=== PATIENT | male | born 2000 | race Caucasian/White ===

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

== ENCOUNTER 2021-02-15 18:44 | Emergency (ER) | payer SELFPAY ==
[~2021-02-15] VITALS: Ht 172.7 cm; Wt 72.2 kg
[2021-02-15 22:01] VITALS: BP 129/73
[2021-02-15] MEDS ORDERED: LIDOCAINE 1% Multi-Dose 20 ML VIAL. ONE (22:03)
--- NOTE | 2021-02-15 22:10 | PHYS DOC ---
Past History Past Medical History: No Pertinent History (ANTONELLA KOO APRN) Past Surgical History: No Surgical History (ANTONELLA KOO APRN) Smoking: Non-smoker Alcohol Use: None Drug Use: None (ANTONELLA KOO APRN) General Adult EDM: Chief Complaint: LACERATION/AVULSION HPI: HPI: Patient is a 21-year-old male who presents to the emergency department for a laceration to his left hand. Patient reports that around 1800 he was fixing his car window when the window fell on his hand and was stopped and he had to pull his hand out causing a laceration. Patient is denying any current pain. He is reporting decreased flexion of his index finger due to swelling but denies any decreased sensation to his extremity. He reports tetanus is up-to-date. (ANTONELLA KOO APRN) Review of Systems: Review of Systems: Constitutional: negative unless reported in HPI Eyes: negative unless reported in HPI HENT: negative unless reported in HPI Respiratory: negative unless reported in HPI Cardiovascular: negative unless reported in HPI GI: negative unless reported in HPI : negative unless reported in HPI Musculoskeletal: negative unless reported in HPI Integument: negative unless reported in HPI Neurologic: negative unless reported in HPI Endocrine: negative unless reported in HPI Lymphatic: negative unless reported in HPI Psychiatric: negative unless reported in HPI (ANTONELLA KOO APRN) Current Medications: Current Meds: Current Medications Medications (Trade) Dose Ordered Sig/Candice Start Time Stop Time Status Last Admin Dose Admin Lidocaine HCl 20 ml STK-MED ONCE 02/15/21 22:03 02/15/21 22:04 DC (ANTONELLA KOO APRN) Allergies: Allergies: Allergies Coded Allergies Type Severity Reaction Last Updated Verified No Known Drug Allergies 11/16/15 No (ANTONELLA KOO APRN) Physical Exam: PE: Constitutional: Well developed, well nourished, no acute distress, non-toxic appearance. [] HENT: Normocephalic, atraumatic, bilateral external ears normal, oropharynx moist, no oral exudates, nose normal. [] Eyes: PERRL, EOMI, conjunctiva normal, no discharge. [] Neck: Normal range of motion, no stridor Cardiovascular: Normal peripheral perfusion Lungs & Thorax: Normal work of breathing, no tachypnea Abdomen: Soft and flat Skin: Warm, dry, no erythema, no rash. [] Back: Normal range of motion Extremities: No tenderness, no cyanosis, no clubbing, ROM intact, no edema. Left hand: Irregular shaped laceration down to the tendon sheath noted to dorsal aspect of left hand proximal to the MCP joint of index finger with active bleeding, full extension, limited flexion due to swelling per patient, neuro intact Neurologic: Alert and oriented X 3, normal motor function, normal sensory function, no focal deficits noted. [] Psychologic: Affect normal, judgement normal, anxious appearing (ANTONELLA KOO APRN) EKG: EKG: [] (ANTONELLA KOO APRN) Radiology/Procedures: Radiology/Procedures: [] (ANTONELLA KOO APRN) Heart Score: C/O Chest Pain: N/A Risk Factors: Risk Factors: DM, Current or recent (<one month) smoker, HTN, HLP, family history of CAD, obesity. Risk Scores: Score 0 - 3: 2.5% MACE over next 6 weeks - Discharge Home Score 4 - 6: 20.3% MACE over next 6 weeks - Admit for Clinical Observation Score 7 - 10: 72.7% MACE over next 6 weeks - Early Invasive Strategies (ANTONELLA KOO APRN) Course & Med Decision Making: Course & Med Decision Making Pertinent Labs and Imaging studies reviewed. (See chart for details) Patient presents to the emergency department for a laceration to his left hand. An x-ray was performed to rule out fracture which showed no acute findings as read by this TAPPER OPERATOR and supervising physician.. Patient's wound was cleansed and was repaired with sutures. Patient tolerated procedure. Patient is neurovascularly intact. Patient will be discharged home with antibiotic. He is advised to follow-up with a hand surgeon. Patient educated on wound care and suture removal. I discussed with patient all findings and diagnostic testing as well as the need to follow-up with PCP for further evaluation and treatment or return to the ER if any new or worsening symptoms. Strict return precautions were also discussed at length. Patient voiced understanding and agreement with the plan. Patient is hemodynamically stable at the time of disposition. (ANTONELLA KOO APRN) Dragon Disclaimer: Dragon Disclaimer: This electronic medical record was generated, in whole or in part, using a voice recognition dictation system. (ANTONELLA KOO APRN) Laceration Repair Lac Repair Time:2199 Confirmed: Patient, procedure, site, and site correct Consent: Patient has given verbal consent Laceration location:left dorsal aspect of hand proximal to mcp joint of 2nd finger Shape:irregular Depth: ivnlving tendon sheath Details: Clean with no foreign material Neurovascular, tendon exam: Intact Anesthesia:1% lidocaine Preparation: Sterile field established Irrigation: Wound irrigated with saline wound wash chlorhexadine Skin closure: Simple interrupted sutures placed Size of suture:5-0 ethilon Number of sutures:10 Complexity: Single layer Post procedure exam: Circulation, motor, sensory exam intact, bleeding controlled. Complications: None Patient tolerated: Well Performed by: self Total time: 10 minutes (ANTONELLA KOO APRN) Departure Departure: Impression: Primary Impression: Laceration Disposition: 01 HOME / SELF CARE / HOMELESS Condition: GOOD Referrals: PCP,NO (PCP) Patient Instructions: Laceration Care, Adult Additional Instructions: You need to follow-up with a hand surgeon at [facility] as soon as possible, please call them at [phone] tomorrow to set up a follow-up appointment. If you do not follow-up with a hand surgeon you may experience problems with your range of motion and movement of that hand. You were seen in the emergency department today for a laceration to your hand. This was repaired with stitches. Please keep the laceration site clean and dry, you can wash with warm water and mild soap. Do not soak your hand in any water for 48 hours. Please keep dressing in place, we can also apply Polysporin or bacitracin ointment to the laceration. Change the dressing twice daily and when soiled. Go to your primary care provider office or return to the emergency department in 10 days to have your sutures removed. Monitor for any signs of infection which include redness, warmth, swelling or drainage. You are being discharged home with an antibiotic please start and finish the antibiotic completely. If you develop any of the signs of infection, increased pain, increased swelling, decreased sensation or decreased range of motion you must return to the emergency department immediately. Scripts Cephalexin (KEFLEX) 500 Mg Capsule 1 CAP PO QID for infection for 7 Days, #28 CAP 0 Refills Prov: ANTONELLA KOO APRN 02/15/21 Attending Signature Attending Signature I have participated in the care of this patient and I have reviewed and agree with all pertinent clinical information above including history, exam, and recommendations. (MAYELIN OWUSU MD) ANTONELLA KOO APRN Feb 15, 2021 22:10 MAYELIN OWUSU MD Feb 20, 2021 20:08
[2021-02-15] MEDS ORDERED: LIDOCAINE 1% Multi-Dose 20 ML VIAL. IJ ONE (22:15)
[2021-02-15] MEDS ORDERED: CEPH500C PO (22:58)
[2021-02-15] MEDS ORDERED: cefTRIAXone IM 1 GM VIAL IM ONE (23:00)
--- NOTE | 2021-02-15 23:21 | RAD ---
EXAM: LEFT HAND 3 VIEWS. HISTORY: Laceration. COMPARISON: None. FINDINGS: No fractures are identified. Alignment is maintained. Joint spaces are maintained. There is soft tissue gas within the first-second interspace. There is no radiopaque foreign body. IMPRESSION: 1. Soft tissue laceration. No fracture or radiopaque foreign body. Electronically signed by: Mayela Knox MD (02/15/2021 11:18 PM) [id number]
== END 2021-02-15 23:29 | disposition home or self-care (01) ==
LOC: ER 18:44
DX: S61.412A Laceration without foreign body of left hand, initial encounter (principal); W25.XXXA Contact with sharp glass, initial encounter; Y93.89 Activity, other specified; Y92.89 Other specified places as the place of occurrence of the external cause; Y99.8 Other external cause status
CPT/HCPCS: 12001; 73130; 96372; 99283; J0696